=== PATIENT | female | born 1965 | race Caucasian/White ===

== ENCOUNTER → 2019-02-10 | Outpatient (CLI) | payer OTHER ==
[~2019-02-10] MED LIST: ADULT LOW DOSE81 MG PO; B-12250 MCG PO; DEXTROAMPHETAMIN5 M2; HYDROCODONE-AP1 EAC1 PO; PREVACID15 MG PO; PROVENTIL HFA6.7 G1 INH; SIMBICORT; SINGULAIR; SINGULAIR 10 MG10 M1 PO; STOOL SOFTENER; SYMBICORT160 MCG/4. INH; Singulair; TRAMADOL 50 MG50 MG; TRAMADOL 50 MG50 MG PO; VITAMIN B12
== END ==
LOC: M.RAD 10:55
DX: Z12.31 Encounter for screening mammogram for malignant neoplasm of breast (principal)

== ENCOUNTER → 2019-02-24 | Outpatient (CLI) | payer OTHER | LOC: M.ULTRA 10:30 | DX: N63.21 Unspecified lump in the left breast, upper outer quadrant (principal) ==

== ENCOUNTER → 2019-03-23 | Outpatient (CLI) | payer OTHER ==
[~2019-03-23] MED LIST changes: +ADDERALL 20 MG20 M1 PO
== END ==
LOC: M.RAD 06:41 → M.SUR 06:41 → M.RAD 08:00 → M.SUR 08:00 → EDSTATUS 08:00
DX: N63.20 Unspecified lump in the left breast, unspecified quadrant (principal); R92.8 Other abnormal and inconclusive findings on diagnostic imaging of breast; R92.2 Inconclusive mammogram; J45.909 Unspecified asthma, uncomplicated; M81.0 Age-related osteoporosis without current pathological fracture; K21.9 Gastro-esophageal reflux disease without esophagitis

== ENCOUNTER → 2020-02-29 | Outpatient (CLI) | payer OTHER | LOC: M.RAD 02-28 13:30 | PROVIDERS: ATTEND Family Medicine | DX: M81.0 Age-related osteoporosis without current pathological fracture (principal) ==